=== PATIENT | female | born 1970 | race Hispanic/Latino ===

== ENCOUNTER 2019-01-03 06:03 | Day surgery (SDC) | payer OTHER ==
[2019-01-03] VITALS (13 sets, daily range): BP systolic 114–149; BP diastolic 74–98
[~2019-01-03] VITALS: Ht 162.6 cm; Wt 68.0 kg
[2019-01-03] MEDS ORDERED: INDOMETHACIN 50 MG SUPP.RECT RC SCH (07:00)
[2019-01-03] MEDS ORDERED: LEVO88TA4 PO (07:05)
[2019-01-03] MEDS ORDERED: IOHEXOL-350 50ML VIAL IV ONE (07:56)
[2019-01-03] MEDS ORDERED: SUCCINYLCHOLINE 200MG/10ML SYR ONE (07:58)
[2019-01-03] MEDS ORDERED: SODIUM CHLORIDE 0.9% 1000ML 1,000 ML IV ONE (08:03)
== END 2019-01-03 09:55 | disposition home or self-care (01) ==
LOC: DAH 06:03
PROVIDERS: ATTEND Internal Medicine
DX: K80.50 Calculus of bile duct without cholangitis or cholecystitis without obstruction (principal); K83.8 Other specified diseases of biliary tract; Z72.89 Other problems related to lifestyle; Z98.890 Other specified postprocedural states; Z83.3 Family history of diabetes mellitus
CPT/HCPCS: 43262; 74330; A4606; C1769; C1773; J0330; J7030; Q9967; 74328